=== PATIENT | female | born 1990 | race Caucasian/White ===

== ENCOUNTER 2019-06-10 11:25 | Outpatient (CLI) | payer MEDICAID, OTHER ==
[~2019-06-10] VITALS: Ht 160 cm; Wt 105.0 kg
[~2019-06-10 11:25] MED LIST: IBUP-1222 PO; OMEP20TA62 PO; OXYC-302 PO; PREN1TAB60 PO
[2019-06-10 11:37] VITALS: BP 123/61
[2019-06-10 12:09] LABS: CULTURE INDICATED? NO; MICROSCOPIC NOT IND
[2019-06-10] MEDS ORDERED: TERBUTALINE 1 MG/ML, 1ML ONE (13:47)
[2019-06-10] MEDS ORDERED: TERBUTALINE 1 MG/ML, 1ML SQ ONE (14:00)
== END 2019-06-10 15:15 | disposition home or self-care (01) ==
LOC: LDOP 11:25
PROVIDERS: ATTEND Obstetrics & Gynecology
DX: O26.893 Other specified pregnancy related conditions, third trimester (principal); Z3A.34 34 weeks gestation of pregnancy
CPT/HCPCS: 59025; 81003; 96372; 99211; J3105; G0463